=== PATIENT | female | born 1980 | race Caucasian/White ===

== ENCOUNTER 2023-06-14 09:41 | Outpatient (AMB) | payer OTHER, SELFPAY ==
--- NOTE | 2023-06-14 10:37 | AM.OFFWIN_ITS ---
Intake Vital Signs 06/14/23 10:44 Height 5 ft 4 in Weight 231 lb BMI 39.6 BP 130/80 Blood Pressure Location Lt brachial Position Sitting Pulse 114 H Pulse Source Pulse Oximeter Temp 97.5 F Temp Source Temporal Artery Scan Pulse Oximetry (%) 99 Oxygen Delivery Method Room Air Intake Visit Reasons: [employer], cough ([phone]) Intake Note: pt is here today for cough started 2 weeks ago Patient Tobacco Use Status: Never used Tobacco Allergies No Known Allergies Allergy (Verified 06/14/23 10:38) Do you need a note to return to daycare/school/sports/work: Yes HPI HPI Comments History of Present Illness Details The patient presents to urgent care for evaluation of cough x2 weeks. She reports congestion in her ears and some lymph node swelling front of her left ear. She denies fever chills chest pain shortness of breath. Patient does have history of asthma and does admit to cigarette smoking. She reports that on occasion the cough is productive and then it seems to subside occasionally she will feel like she is getting better and then the cough seems to worsen. She wanted to come in to get checked. [facility] Social History Patient Tobacco Use Status: Never used Tobacco Review of Systems Const Denies increased appetite Card Denies radiating jaw, neck or arm pain and Denies dyspnea Resp Denies hemoptysis and Denies dyspnea Physical Exam Vital Signs: Last Vital Signs Temp 97.5 F 06/14/23 10:44 Pulse 114 H 06/14/23 10:44 BP 130/80 06/14/23 10:44 Pulse Ox 99 06/14/23 10:44 Oxygen Delivery Method Room Air 06/14/23 10:44 BMI result Body Mass Index 39.6 Const General: healthy appearing and no acute distress HEENT Head: Yes normal to inspection Ears: external ears normal and TM's normal bilaterally Neck Neck: Yes lymphadenopathy (left ant cervical chain) Chest Chest palpation & inspection: normal inspection of the chest Resp Effort & Inspection: normal respiratory effort and able to speak in complete sentences Auscultation: clear to auscultation bilaterally Assessment & Plan Assessment & Plan (1) Cough: Code(s): R05.9 - Cough, unspecified Plan Lungs are clear and I do not feel patient warrants a course of prednisone and symptoms are likely secondary to virus and therefore antibiotics are not indicated. Patient can continue with [id number] medications will recommend Tessalon Perles as well. Medications: New benzonatate 100 mg PO TID PRN 14 caps 0RF cough Coding Level of Care Code Est Pt Level 3 (32574) Diagnoses Cough R05.9
[2023-06-14 10:44] VITALS: BP 130/80; PULSE 114; TEMP 36.4; O2SAT 99; BMI 39.6
== END 2023-06-14 11:15 | disposition home or self-care (01) ==
PROVIDERS: Visit Provider Emergency Medicine
DX: R05.9 Cough, unspecified (principal)
CPT/HCPCS: 99213